=== PATIENT | female | born 1975 | race Caucasian/White ===

== ENCOUNTER 2021-03-09 10:11 | Emergency (ER) | payer BC, OTHER ==
[2021-03-09] MEDS ORDERED: Dexamethasone 10 MG/ML VIAL ONE (10:35)
[2021-03-09 11:12] LABS: #Basophils 0.1 thou/uL (0.0-0.2); #Eosinphils 0.6 thou/uL (0.0-0.7); #Lymphocytes 2.4 thou/uL (1.20-3.40); #Monocytes 0.6 thou/uL (0.11-0.59); #Neutrophils 2.1 thou/uL (1.40-6.50); %Basophils 1.2 % (0.0-1.0); %Eosinophils 10.2 % (0.0-10.0); %Lymphocytes 41.5 % (21.0-51.0); %Monocytes 10.6 % (0.0-10.0); %Neutrophils 36.5 % (42.0-75.0); Hemoglobin 14.2 g/dL (12.0-16.0); Mean Corpuscular HGB CONC 37.4 g/dL (32.0-36.0); Mean Corpuscular Hemoglobin 33.1 pg (27.0-31.0); Mean Corpuscular Volume 88.4 fL (78.0-98.0); Mean Platelet Volume 8.2 fL (7.4-10.4); Platelet Count 255 thou/uL (130-400); RBC Distribution Width 12.9 % (11.5-14.5); Red Blood Cell (RBC) Count 4.28 mill/uL (4.20-5.40); White Blood Cell (WBC) Count 5.8 thou/uL (4.8-10.8)
[2021-03-09 11:34] LABS: ALT (SGPT) 31 U/L (8-55); AST (SGOT) 32 U/L (5-34); Albumin 4.2 g/dL (3.5-5.0); Alkaline Phosphatase 63 U/L (40-110); Anion Gap 10 mmol/L (10-20); BUN (Urea Nitrogen) 13 mg/dL (7.0-18.7); Bilirubin, Total 0.4 mg/dL (0.2-1.2); CK (CPK) 87 U/L (29-168); Calc. Creatinine Clearance 0 mL/min (70-130); Calcium 9.6 mg/dL (7.8-10.44); Carbon Dioxide 32 mmol/L (22-29); Chloride 102 mmol/L (98-107); Globulin 2.8 g/dL (2.4-3.5); Glucose 101 mg/dL (70-105); Lipase 36 U/L (8-78); Potassium 3.2 mmol/L (3.5-5.1); Sodium 141 mmol/L (136-145)
[2021-03-09 11:41] LABS: Bilirubin Negative (Negative); Blood, Urine Negative (Negative); Clarity Clear (Clear); Glucose, Urine (Dipstick) Normal (Negative); Ketone, Urine Negative (Negative); Leukocyte Negative Leu/uL (Negative); Nitrite Negative (Negative); Protein, Urine (Dipstick) 10 mg/dL (Neg-Trace); Specific Gravity, Urine 1.032 (1.002-1.036); Urobilinogen Normal mg/dL (Less than 2); pH, Urine 5.5 (5.0-9.0)
== END 2021-03-09 12:12 | disposition home or self-care (01) ==
LOC: ERS 10:11
DX: U07.1 COVID-19 (principal); I10 Essential (primary) hypertension; J45.909 Unspecified asthma, uncomplicated; E11.9 Type 2 diabetes mellitus without complications; Z79.84 Long term (current) use of oral hypoglycemic drugs; Z79.899 Other long term (current) drug therapy
CPT/HCPCS: 36415; 71045; 80053; 81003; 82550; 83690; 83880; 84484; 85025; 85379; 87804; 93005; 96374; J1100

== ENCOUNTER 2021-03-11 13:29 | Emergency (ER) | payer BC | END 2021-03-11 14:05 | disposition home or self-care (01) | LOC: ERS 13:29 | DX: U07.1 COVID-19 (principal); R11.2 Nausea with vomiting, unspecified; R03.0 Elevated blood-pressure reading, without diagnosis of hypertension | CPT/HCPCS: 99284 ==

== ENCOUNTER 2023-09-04 19:38 | Inpatient (IN) | payer BC, SELFPAY ==
[2023-09-04] MEDS ORDERED: Ondansetron PF 4 MG/2 ML Vial ONE (20:00)
[2023-09-04] MEDS ORDERED: Ketorolac Tromethamine 30 MG (1 mL) VIAL ONE (20:00)
[2023-09-04 20:25] LABS: Bacteria/HPF None Seen HPF (None Seen); Bilirubin 1+ (Negative); Blood, Urine Negative (Negative); CAUTI Indications for Culture Pelvic or flank pain; Clarity Clear (Clear); Glucose, Urine (Dipstick) Normal (Negative); Ketone, Urine Negative (Negative); Leukocyte Negative Leu/uL (Negative); Nitrite Negative (Negative); Protein, Urine (Dipstick) 30 mg/dL (Neg-Trace); RBC/HPF 0-3 HPF (0-3); Specific Gravity, Urine 1.036 (1.002-1.036); WBC/HPF 0-3 HPF (0-3)
[2023-09-04 20:26] LABS: Urine Culture Reflex No No
[2023-09-04 20:30] LABS: #Basophils Less than 0.03 10x3/uL (0.0-0.2); %Basophils 0.1 % (0.0-1.0); %Eosinophils 1.3 % (0.0-10.0); %Lymphocytes 4.5 % (21.0-51.0); %Neutrophils 90.7 % (42.0-75.0); Hematocrit 38.9 % (36.0-47.0); Mean Corpuscular Hemoglobin 30.9 pg (27.0-31.0); Mean Corpuscular Volume 85.9 fL (78.0-98.0); Mean Platelet Volume 10.4 fL (7.4-10.4); Platelet Count 319 10x3/uL (130-400); RBC Distribution Width 13.2 % (11.5-14.5); Red Blood Cell (RBC) Count 4.53 mill/uL (4.20-5.40)
[2023-09-04 20:45] LABS: ALT (SGPT) 126 U/L (8-55); AST (SGOT) 285 U/L (5-34); Albumin 3.8 g/dL (3.5-5.0); Alkaline Phosphatase 99 U/L (40-110); Anion Gap 16 mmol/L (10-20); BUN (Urea Nitrogen) 20 mg/dL (7.0-18.7); Bilirubin, Total 1.1 mg/dL (0.2-1.2); Calc. Creatinine Clearance 0 mL/min (70-130); Calcium 9.6 mg/dL (7.8-10.44); Carbon Dioxide 22 mmol/L (22-29); Chloride 104 mmol/L (98-107); Estimated GFR 102; Globulin 3.7 g/dL (2.4-3.5); Glucose 127 mg/dL (70-105); Lipase 41 U/L (8-78); Magnesium 1.7 mg/dL (1.6-2.6); Potassium 3.1 mmol/L (3.5-5.1); Protein, Total 7.5 g/dL (6.0-8.3); Sodium 139 mmol/L (136-145)
[2023-09-04] MEDS ORDERED: Potassium Chloride 20 MEQ TAB ONE (21:25)
[2023-09-04] MEDS ORDERED: Morphine 4 MG/ML VIAL ONE (21:29)
[2023-09-04 22:25] LABS: PTT 32.2 sec (22.9-36.1); Prothrombin Time 13.3 sec (12.0-14.7)
[2023-09-04 22:38] LABS: HBsAg Index 0.29 S/CO (0-0.99); Hep A IgM AB NONREACTIVE (NonReactive); Hep A IgM S/CO 0.13 S/CO (0-0.79); Hep B Surf Ag NONREACTIVE S/CO (NonReactive); Hep C IgG Ab NONREACTIVE S/CO (NonReactive); Hep C Index 0.08 S/CO (0-0.79); Hepatitis B Core IgM Abs NONREACTIVE S/CO (NonReactive)
[2023-09-04] MEDS ORDERED: Acetaminophen 325 MG TAB PO PRN (23:28)
[2023-09-05] MEDS: Morphine 2 MG/ML VIAL SLOW IVP PRN (00:35)
[2023-09-05 00:39] VITALS: BMI 32.1
[2023-09-05] MEDS: Sodium Chloride 0.9% 1,000 ML IV SCH (00:40)
[2023-09-05] MEDS ORDERED: Albuterol 2.5 MG (3 mL) NEB NEB PRN (04:34)
[2023-09-05] MEDS: Potassium Bicarbonate/Cit Ac 20 MEQ TAB PO SCH (09:54)
[2023-09-05] MEDS: Ketorolac Tromethamine 30 MG (1 mL) VIAL IVP SCH (09:54)
[2023-09-05] MEDS: Ondansetron PF 4 MG/2 ML Vial IVP PRN (10:41)
[2023-09-05] MEDS: traMADol HCl 50 MG TAB PO PRN (10:42)
[2023-09-05 13:54] LABS: #Basophils Less than 0.03 10x3/uL (0.0-0.2); %Basophils 0.2 % (0.0-1.0); %Eosinophils 3.5 % (0.0-10.0); %Lymphocytes 35.3 % (21.0-51.0); %Monocytes 9.3 % (0.0-10.0); %Neutrophils 51.3 % (42.0-75.0); Hematocrit 33.6 % (36.0-47.0); Hemoglobin 11.7 g/dL (12.0-16.0); Mean Corpuscular HGB CONC 34.8 g/dL (32.0-36.0); Mean Corpuscular Hemoglobin 30.9 pg (27.0-31.0); Mean Corpuscular Volume 88.7 fL (78.0-98.0); Mean Platelet Volume 10.5 fL (7.4-10.4); Platelet Count 220 10x3/uL (130-400); RBC Distribution Width 13.3 % (11.5-14.5); Red Blood Cell (RBC) Count 3.79 mill/uL (4.20-5.40)
[2023-09-05 14:08] LABS: ALT (SGPT) 132 U/L (8-55); AST (SGOT) 120 U/L (5-34); Albumin 3.2 g/dL (3.5-5.0); Alkaline Phosphatase 109 U/L (40-110); Anion Gap 13 mmol/L (10-20); BUN (Urea Nitrogen) 11 mg/dL (7.0-18.7); Bilirubin, Total 0.5 mg/dL (0.2-1.2); Calc. Creatinine Clearance 148 mL/min (70-130); Calcium 8.8 mg/dL (7.8-10.44); Carbon Dioxide 24 mmol/L (22-29); Chloride 109 mmol/L (98-107); Estimated GFR 109; Globulin 3.1 g/dL (2.4-3.5); Glucose 82 mg/dL (70-105); Magnesium 1.7 mg/dL (1.6-2.6); Potassium 3.2 mmol/L (3.5-5.1); Protein, Total 6.3 g/dL (6.0-8.3); Sodium 143 mmol/L (136-145)
[2023-09-06 06:45] LABS: #Basophils Less than 0.03 10x3/uL (0.0-0.2); %Basophils 0.3 % (0.0-1.0); %Eosinophils 8.3 % (0.0-10.0); %Lymphocytes 47.5 % (21.0-51.0); %Monocytes 11.1 % (0.0-10.0); %Neutrophils 32.6 % (42.0-75.0); Hematocrit 36.2 % (36.0-47.0); Hemoglobin 12.5 g/dL (12.0-16.0); Mean Corpuscular HGB CONC 34.5 g/dL (32.0-36.0); Mean Corpuscular Hemoglobin 31.1 pg (27.0-31.0); Mean Platelet Volume 10.3 fL (7.4-10.4); Platelet Count 269 10x3/uL (130-400); RBC Distribution Width 13.5 % (11.5-14.5); Red Blood Cell (RBC) Count 4.02 mill/uL (4.20-5.40)
[2023-09-06 07:02] LABS: ALT (SGPT) 105 U/L (8-55); AST (SGOT) 61 U/L (5-34); Albumin 3.4 g/dL (3.5-5.0); Alkaline Phosphatase 104 U/L (40-110); Anion Gap 11 mmol/L (10-20); BUN (Urea Nitrogen) 9 mg/dL (7.0-18.7); Bilirubin, Total 0.4 mg/dL (0.2-1.2); Calc. Creatinine Clearance 133 mL/min (70-130); Calcium 9.1 mg/dL (7.8-10.44); Carbon Dioxide 24 mmol/L (22-29); Chloride 108 mmol/L (98-107); Estimated GFR 106; Globulin 3.3 g/dL (2.4-3.5); Glucose 95 mg/dL (70-105); Magnesium 1.8 mg/dL (1.6-2.6); Potassium 3.2 mmol/L (3.5-5.1); Protein, Total 6.7 g/dL (6.0-8.3); Sodium 140 mmol/L (136-145)
[2023-09-06] MEDS: Potassium Chloride 20 MEQ TAB PO SCH ×2 (10:35→15:16)
[2023-09-06] MEDS ORDERED: Polyethylene Glycol 3350 17 GM Packet PO PRN (11:46)
[2023-09-06] MEDS: HYDROcodone/Acetaminophen 5/325 mg Tablet PO PRN (11:57)
[2023-09-07] MEDS ORDERED: Electrolyte Replacement Protocol 1 EACH FS SCH (03:30)
[2023-09-07] MEDS: Morphine 2 MG/ML VIAL SLOW IVP SCH (03:49)
[2023-09-07 04:30] LABS: #Basophils Less than 0.03 10x3/uL (0.0-0.2); %Basophils 0.4 % (0.0-1.0); %Eosinophils 9.1 % (0.0-10.0); %Lymphocytes 54.5 % (21.0-51.0); %Monocytes 10.1 % (0.0-10.0); %Neutrophils 25.5 % (42.0-75.0); Hematocrit 34.9 % (36.0-47.0); Mean Corpuscular HGB CONC 34.4 g/dL (32.0-36.0); Mean Corpuscular Hemoglobin 30.2 pg (27.0-31.0); Mean Corpuscular Volume 87.7 fL (78.0-98.0); Mean Platelet Volume 10.5 fL (7.4-10.4); Platelet Count 254 10x3/uL (130-400); RBC Distribution Width 13.2 % (11.5-14.5); Red Blood Cell (RBC) Count 3.98 mill/uL (4.20-5.40)
[2023-09-07 04:47] LABS: ALT (SGPT) 77 U/L (8-55); AST (SGOT) 43 U/L (5-34); Albumin 3.1 g/dL (3.5-5.0); Alkaline Phosphatase 103 U/L (40-110); Anion Gap 15 mmol/L (10-20); BUN (Urea Nitrogen) 9 mg/dL (7.0-18.7); Bilirubin, Total 0.4 mg/dL (0.2-1.2); Calc. Creatinine Clearance 141 mL/min (70-130); Calcium 8.9 mg/dL (7.8-10.44); Carbon Dioxide 22 mmol/L (22-29); Chloride 108 mmol/L (98-107); Estimated GFR 108; Globulin 3.1 g/dL (2.4-3.5); Glucose 101 mg/dL (70-105); Iron 48 ug/dL (50-170); Iron Binding Capacity, Total 241 mcg/dL (265-497); Magnesium 1.8 mg/dL (1.6-2.6); Protein, Total 6.2 g/dL (6.0-8.3); Sodium 142 mmol/L (136-145)
[2023-09-07 06:04] LABS: Hep B Surf AB GRAYZONE (NonReactive)
[2023-09-07] MEDS: Potassium Chloride 20 MEQ TAB PO SCH ×2 (08:19→15:08)
[2023-09-07] MEDS: Magnesium 2 GM/50 ML(in water) 2 GM in Premix 1 BAG IVPB SCH (08:20)
[2023-09-07 12:30] LABS: ANA Symphony (Qualitative) Negative (Negative); ANA Symphony (Quantitative) 0.3 Ratio (< 0.7 Negative); EliA Vaculitis New Method **** NEW METHOD ****; Mitochondrial Ab 0.7 U/mL (<4 Negative)
[2023-09-07] MEDS ORDERED: Iopamidol-370 76% 500 ML MDV (1 ML CHARGE) ONE (13:16)
[2023-09-07] MEDS ORDERED: GoLYTELY 4,000 ml Bottle PO SCH (16:45)
[2023-09-08 10:04] LABS: Hematocrit 35.7 % (36.0-47.0); Hemoglobin 12.3 g/dL (12.0-16.0); Mean Corpuscular HGB CONC 34.5 g/dL (32.0-36.0); Mean Corpuscular Hemoglobin 30.8 pg (27.0-31.0); Mean Corpuscular Volume 89.5 fL (78.0-98.0); Mean Platelet Volume 10.1 fL (7.4-10.4); Platelet Count 265 10x3/uL (130-400); Red Blood Cell (RBC) Count 3.99 mill/uL (4.20-5.40)
[2023-09-08 10:20] LABS: Anion Gap 12 mmol/L (10-20); BUN (Urea Nitrogen) 6 mg/dL (7.0-18.7); Calc. Creatinine Clearance 135 mL/min (70-130); Calcium 9.5 mg/dL (7.8-10.44); Carbon Dioxide 26 mmol/L (22-29); Chloride 107 mmol/L (98-107); Estimated GFR 106; Glucose 100 mg/dL (70-105); Potassium 3.3 mmol/L (3.5-5.1); Sodium 142 mmol/L (136-145)
[2023-09-08 10:43] LABS: Band 3 % (5-11); Eosinophils 12 % (0-10); Large Platelets 6.9 % (0-5); Lymphocytes 39 % (21-51); Monocytes 8 % (0-10); Neutrophil 38 % (42-75); Platelet Adequacy Comment Platelets Normal; RBC Morphology Within Normal Limits; Reactive Lymphocytes 1 % (0-10)
[2023-09-08] MEDS ORDERED: fentaNYL 50 mcg/mL 1 mL Vial ONE (11:12)
[2023-09-08] MEDS ORDERED: Lidocaine 1% PF 5 ML VIAL ONE (11:52)
[2023-09-08] MEDS ORDERED: PROPOFOL 20 ML ONE ×3 (11:53→12:23)
[2023-09-08] MEDS ORDERED: Midazolam HCl 2 mg/2 ml Vial ONE (12:02)
[2023-09-08] MEDS: Potassium Chloride 20 MEQ TAB PO SCH (14:50)
[2023-09-08] MEDS: GoLYTELY 4,000 ml Bottle PO SCH (18:49)
[2023-09-08] MEDS: Sodium Chloride 0.9% 1,000 ML IV SCH (20:56)
[2023-09-09 05:41] LABS: #Basophils Less than 0.03 10x3/uL (0.0-0.2); %Basophils 0.3 % (0.0-1.0); %Eosinophils 6.6 % (0.0-10.0); %Lymphocytes 46.1 % (21.0-51.0); %Monocytes 8.2 % (0.0-10.0); %Neutrophils 38.5 % (42.0-75.0); Hematocrit 33.8 % (36.0-47.0); Hemoglobin 11.5 g/dL (12.0-16.0); Mean Corpuscular Hemoglobin 29.9 pg (27.0-31.0); Mean Platelet Volume 10.6 fL (7.4-10.4); Platelet Count 248 10x3/uL (130-400); RBC Distribution Width 12.9 % (11.5-14.5); Red Blood Cell (RBC) Count 3.84 mill/uL (4.20-5.40)
[2023-09-09 06:01] LABS: ALT (SGPT) 94 U/L (8-55); AST (SGOT) 48 U/L (5-34); Albumin 3.1 g/dL (3.5-5.0); Alkaline Phosphatase 180 U/L (40-110); Anion Gap 13 mmol/L (10-20); BUN (Urea Nitrogen) 5 mg/dL (7.0-18.7); Bilirubin, Total 0.5 mg/dL (0.2-1.2); Calc. Creatinine Clearance 135 mL/min (70-130); Calcium 9.2 mg/dL (7.8-10.44); Carbon Dioxide 26 mmol/L (22-29); Chloride 108 mmol/L (98-107); Estimated GFR 106; Globulin 2.8 g/dL (2.4-3.5); Glucose 91 mg/dL (70-105); Potassium 3.5 mmol/L (3.5-5.1); Protein, Total 5.9 g/dL (6.0-8.3); Sodium 143 mmol/L (136-145)
[2023-09-09] MEDS ORDERED: Potassium Bicarbonate/Cit Ac 20 MEQ TAB PO SCH (08:00)
[2023-09-09] MEDS ORDERED: fentaNYL 50 mcg/mL 1 mL Vial ONE ×4 (08:10→17:42)
[2023-09-09] MEDS ORDERED: PROPOFOL 20 ML ONE ×3 (08:53→15:39)
[2023-09-09] MEDS ORDERED: Lidocaine 1% PF 5 ML VIAL ONE ×2 (09:11→15:40)
[2023-09-09 11:20] LABS: Phosphorus 3.2 mg/dL (2.3-4.7)
[2023-09-09] MEDS: Piperacillin/Tazobactam 3.375 GM in Sodium Chloride 0.9% 100 ML IVPB SCH (11:35)
[2023-09-09 12:06] LABS: Campy jejuni + coli by PCR Negative (Negative); STEC Shiga Toxin 1+2 Negative (Negative); Salmonella spp. by PCR Negative (Negative); Shigella spp + EIEC by PCR Negative (Negative)
[2023-09-09] MEDS: Potassium Phosphate 30 MMOL in Sodium Chloride 0.9% 250 ML 250 ML IVPB SCH (14:19)
[2023-09-09] MEDS ORDERED: fentaNYL PF 100 MCG/2 ML SYRINGE ONE (15:39)
[2023-09-09] MEDS ORDERED: Ondansetron PF 4 MG/2 ML Vial ONE (15:40)
[2023-09-09] MEDS ORDERED: SUCCINYLCHOLINE/SOD CL,ISO/PF 200 MG/10 ML SYRINGE FS ONE (15:40)
[2023-09-09] MEDS ORDERED: Dexamethasone 20 MG/5 ML VIAL ONE (15:40)
[2023-09-09] MEDS ORDERED: Midazolam HCl 2 mg/2 ml Vial ONE (15:40)
[2023-09-09] MEDS ORDERED: EPINEPHrine 1 MG/ML VIAL ONE (15:40)
[2023-09-09] MEDS ORDERED: Rocuronium Bromide 10 MG/ML (10ML VIAL) ONE (15:40)
[2023-09-09] MEDS ORDERED: Bupivacaine 0.25% HCL 30 ML VIAL ONE (15:41)
[2023-09-09] MEDS ORDERED: Piperacillin/Tazobactam 3.375 GM in Sodium Chloride 0.9% 100 ML IVPB SCH (16:00)
[2023-09-09] MEDS ORDERED: PHENYLEPHRINE-NS 100 MCG/ML 10 ML SYRINGE ONE (16:16)
[2023-09-09] MEDS ORDERED: ePHEDrine Sulfate 50 MG/10 ML VIAL ONE (16:21)
[2023-09-09] MEDS ORDERED: SUGAMMADEX SODIUM 200 MG/2 ML VIAL ONE (16:34)
[2023-09-09] MEDS ORDERED: tiZANidine HCl 4 MG TAB PO PRN (16:45)
[2023-09-09] MEDS ORDERED: Promethazine HCl 25 MG/ML VIAL IM PRN (16:49)
[2023-09-09] MEDS ORDERED: Ketorolac Tromethamine 30 MG/ML VIAL IVP PRN (16:49)
[2023-09-09] MEDS ORDERED: Ondansetron HCl/PF 4 MG/2 ML Vial IVP PRN (16:49)
[2023-09-09] MEDS ORDERED: HYDROmorphone 2 MG/ML VIAL SLOW IVP PRN (16:49)
[2023-09-09] MEDS ORDERED: HYDROmorphone 0.5 MG/0.5 ML SYRINGE ONE ×2 (16:54→17:26)
[2023-09-09] MEDS: Ketorolac Tromethamine 30 MG (1 mL) VIAL IVP SCH ×2 (18:26→18:47)
[2023-09-09] MEDS: Acetaminophen 500 MG TAB PO SCH (18:26)
[2023-09-09] MEDS ORDERED: Non-Formulary Item 1 EACH (Albuterol 200 PUFF Inh) PO SCH (19:00)
[2023-09-09] MEDS: Albuterol 200 PUFF (6.7GM INHALER) INH SCH (21:27)
[2023-09-10 06:15] LABS: ALT (SGPT) 68 U/L (8-55); AST (SGOT) 23 U/L (5-34); Albumin 3.2 g/dL (3.5-5.0); Alkaline Phosphatase 153 U/L (40-110); Anion Gap 13 mmol/L (10-20); BUN (Urea Nitrogen) 9 mg/dL (7.0-18.7); Bilirubin, Total 0.3 mg/dL (0.2-1.2); Calc. Creatinine Clearance 141 mL/min (70-130); Calcium 9.6 mg/dL (7.8-10.44); Carbon Dioxide 21 mmol/L (22-29); Chloride 108 mmol/L (98-107); Estimated GFR 108; Globulin 3.3 g/dL (2.4-3.5); Glucose 187 mg/dL (70-105); Protein, Total 6.5 g/dL (6.0-8.3); Sodium 138 mmol/L (136-145)
[2023-09-10 08:28] VITALS: BP 144/76; TEMP 98.2
[2023-09-10] MEDS: Amlodipine 10 MG TAB PO SCH (08:43)
[2023-09-10] MEDS: Estradiol 1 MG TAB PO SCH (08:44)
[2023-09-10] MEDS: metFORMIN 500 MG TAB PO SCH (08:44)
[2023-09-10] MEDS: Topiramate 25 MG TAB PO SCH (08:44)
[2023-09-10] MEDS: BuPROPion XL 150 MG ER.TAB PO SCH (08:44)
[2023-09-10] MEDS: ALPRAZolam 1 MG TAB PO SCH (08:45)
[2023-09-10] MEDS: traMADol HCl 50 MG TAB PO PRN (13:36)
== END 2023-09-10 14:00 | disposition home or self-care (01) | DRG 398 ==
LOC: ERS 19:38 → SJJU 23:30 → OBSVTOIN 09-06 08:39
PROVIDERS: ADMIT Internal Medicine; ATTEND Internal Medicine
PROC: 0DB98ZX Excision of Duodenum, Via Natural or Artificial Opening Endoscopic, Diagnostic (ICD-10-PCS; 2023-09-08)
PROC: 0DT Gastrointestinal System, Resection (ICD-10-PCS; principal; 2023-09-09)
PROC: 0DJD8ZZ Inspection of Lower Intestinal Tract, Via Natural or Artificial Opening Endoscopic (ICD-10-PCS; 2023-09-09)
PROC: 3E033XZ Introduction of Vasopressor into Peripheral Vein, Percutaneous Approach (ICD-10-PCS; 2023-09-09)
DX: K35.80 Unspecified acute appendicitis (principal); R47.01 Aphasia; R16.0 Hepatomegaly, not elsewhere classified; D72.829 Elevated white blood cell count, unspecified; J45.909 Unspecified asthma, uncomplicated; F41.8 Other specified anxiety disorders; E87.6 Hypokalemia; I10 Essential (primary) hypertension; K29.80 Duodenitis without bleeding; Z79.899 Other long term (current) drug therapy; Z90.710 Acquired absence of both cervix and uterus; Z98.891 History of uterine scar from previous surgery; Z90.49 Acquired absence of other specified parts of digestive tract
CPT/HCPCS: 36415; 74176; 74177; 76705; 80048; 80053; 80074; 81001; 82103; 82390; 82728; 83516; 83540; 83550; 83690; 83735; 84100; 85025; 85610; 85730; 86015; 86038; 86225; 86706; 86708; 87328; 87329; 87505; 88305; 96374; 96375; A4314; A4649; J0171; J0665; J1100; J1170; J1885; J2250; J2270; J2272; J2405; J2543; J2704; J3010; J3475; J3490; J7050; Q9967